=== PATIENT | male | born 1960 | race Caucasian/White ===

== ENCOUNTER 2016-10-02 14:10 | Observation (INO) | payer OTHER ==
[~2016-10-02] VITALS: Ht 170.2 cm; Wt 91.0 kg
[2016-10-02] MEDS: SODIUM CHLORIDE 0.9% FLUSH 10 ML FLUSH IV FLUSH SCH (09:00)
[2016-10-02 14:12] VITALS: BP 180/88; PULSE 91; RESP 18; TEMP 98.1; O2SAT 98
--- NOTE | 2016-10-02 14:34 | PD ---
HPI Chief Complaint: Fall Time Seen by Provider: 14:33 Travel History International Travel<30 days: No Contact w/Intl Traveler<30days: No Traveled to known affect area: No History of Present Illness HPI 56-year-old male presents to emergency Department with complaint of left-sided neck and back pain since Wednesday after stubbing his left great toe on a piece of cement and falling down approximately 3 steps. Is also complaining of left ankle pain. Denies hitting his head or loss of consciousness. Denies anticoagulants. Has been ambulatory since the fall. Denies encopresis, incontinence, saddle anesthesias. Denies paresthesias, loss of sensation, decreased range of motion, decreased strength all extremities. Denies fever, vomiting, chest pain, shortness of breath, abdominal pain. His back pain is his entire left side. Pain is aggravated with movement. Has been taking ibuprofen and Tylenol for symptom management. Symptoms are mild in severity. Has no medical complaints. No other modifying factors or associated signs and symptoms. PFSH Past Medical History Cardiovascular Problems: Yes (HTN) Allergies-Medications (Allergen,Severity, Reaction): Coded Allergies: NSAIDS (Non-Steroidal Anti-Inflamma (Verified Allergy, Severe, Rash, ) Reported Meds & Prescriptions Reported Meds & Active Scripts Active Robaxin (Methocarbamol) 500 Mg Tab 500 Mg PO QID PRN Reported Lisinopril 10 Mg Tab 10 Mg PO DAILY Review of Systems Except as stated in HPI: all other systems reviewed are Neg Physical Exam Narrative GENERAL: Well-nourished, well-developed male patient, in no acute distress; afebrile, nontoxic-appearing SKIN: Warm and dry. HEAD: Atraumatic. Normocephalic. EYES: Pupils equal and round. No scleral icterus. No injection or drainage. ENT: Mucosa pink and moist. Airway patent. NECK: Moving freely. No midline point tenderness on pronation of the cervical spine. Active rotation greater than 45 the left and right. Reproducible tenderness to the left lateral musculature of the neck. Trachea midline. CARDIOVASCULAR: Regular rate and rhythm. No murmur appreciated. RESPIRATORY: No accessory muscle use. Breath sounds clear and equal bilaterally. GASTROINTESTINAL: Abdomen soft, non-tender, nondistended. Positive bowel sounds. No hepato-splenomegaly, or palpable masses. No guarding. MUSCULOSKELETAL: Bilateral lower extremities supple and non-tense with 2+ pedal pulses and sensory intact; with full range of motion and 5/5 strength. 2 + DTRs bilaterally. Active dorsiflexion and extension of bilateral feet. Bilateral straight leg raise is negative for low back pain. Ambulatory in room with normal gait. Sitting up in bed at 90. No obvious deformities. No clubbing. No cyanosis. No edema. BACK: No midline point tenderness on palpation of the lumbar or thoracic spine. Tenderness on palpation to the musculature of the left upper to lower back. No ecchymosis, abrasions noted. No obvious deformities. NEUROLOGICAL: Awake and alert. Oriented 3. No obvious cranial nerve deficits. Motor grossly within normal limits. Normal speech. Moves all extremities. 5/5 strength to all extremities. Sensory intact. PSYCHIATRIC: Appropriate mood and affect; insight and judgment normal. Data Data Last Documented VS Orders Orders Ankle, Complete ([id number]) (10/02/16 14:34) Orphenadrine Inj (Norflex Inj) (10/02/16 14:45) Electrocardiogram (10/02/16 15:45) Basic Metabolic Panel (Bmp) (10/02/16 15:45) Ckmb (Isoenzyme) Profile (10/02/16 15:45) Complete Blood Count With Diff (10/02/16 15:45) Magnesium (Mg) (10/02/16 15:45) Prothrombin Time / Inr (Pt) (10/02/16 15:45) Act Partial Throm Time (Ptt) (10/02/16 15:45) Troponin I (10/02/16 15:45) Ecg Monitoring (10/02/16 15:45) Iv Access Insert/Monitor (10/02/16 15:45) Oximetry (10/02/16 15:45) Oxygen Administration (10/02/16 15:45) Sodium Chloride 0.9% Flush (Ns Flush) (10/02/16 15:45) Chest, Single Ap (10/02/16 15:45) Morphine Inj (Morphine Inj) (10/02/16 16:15) Ondansetron Inj (Zofran Inj) (10/02/16 16:30) CKMB (10/02/16 15:50) CKMB% (10/02/16 15:50) Spine, Cervical Compl(Mgd1hzc) (10/02/16 17:28) Spine, Thoracic-Ap/Lat/Sw(3vw) (10/02/16 17:28) Aspirin Chew (Aspirin Chew) (10/02/16 17:30) Admit Order (Ed Use Only) (10/02/16 18:55) Activity Bed Rest With Brp (10/02/16 18:55) Vital Signs (Adult) Q4H (10/02/16 18:55) Cardiac Rhythm .As Directed (10/02/16 18:55) Notify Dr: Other .PRN (10/02/16 18:55) Notify Dr. Parameters (10/02/16 18:55) Resp Oxygen Nasal Cannula (10/02/16 ) Ckmb (Isoenzyme) Profile (10/02/16 18:55) Ckmb (Isoenzyme) Profile (10/02/16 21:55) Troponin I (10/02/16 18:55) Troponin I (10/02/16 21:55) Electrocardiogram (10/02/16 18:55) Electrocardiogram (10/02/16 21:55) ^ Obtain (10/02/16 18:55) Sodium Chloride 0.9% Flush (Ns Flush) (10/02/16 19:00) Sodium Chloride 0.9% Flush (Ns Flush) (10/02/16 21:00) Marine Tower Operator / Telemetry FRANSICO.Q8H (10/02/16 18:55) CKMB (10/02/16 19:21) CKMB% (10/02/16 19:21) CKMB (10/02/16 22:30) CKMB% (10/02/16 22:30) Labs Laboratory Tests Test 10/02/16 15:50 White Blood Count 5.8 TH/MM3 Red Blood Count 4.87 MIL/MM3 Hemoglobin 15.4 GM/DL Hematocrit 45.5 % Mean Corpuscular Volume 93.5 FL Mean Corpuscular Hemoglobin 31.6 PG Mean Corpuscular Hemoglobin Concent 33.8 % Red Cell Distribution Width 13.1 % Platelet Count 236 TH/MM3 Mean Platelet Volume 9.0 FL Neutrophils (%) (Auto) 53.4 % Lymphocytes (%) (Auto) 31.7 % Monocytes (%) (Auto) 9.1 % Eosinophils (%) (Auto) 5.2 % Basophils (%) (Auto) 0.6 % Neutrophils # (Auto) 3.1 TH/MM3 Lymphocytes # (Auto) 1.8 TH/MM3 Monocytes # (Auto) 0.5 TH/MM3 Eosinophils # (Auto) 0.3 TH/MM3 Basophils # (Auto) 0.0 TH/MM3 CBC Comment DIFF FINAL Differential Comment Prothrombin Time 10.2 SEC Prothromb Time International Ratio 0.9 RATIO Activated Partial Thromboplast Time 28.2 SEC Blood Urea Nitrogen 12 MG/DL Creatinine 1.16 MG/DL Random Glucose 202 MG/DL Calcium Level 8.1 MG/DL Magnesium Level 2.3 MG/DL Sodium Level 136 MEQ/L Potassium Level 3.5 MEQ/L Chloride Level 102 MEQ/L Carbon Dioxide Level 29.3 MEQ/L Anion Gap 5 MEQ/L Estimat Glomerular Filtration Rate 65 ML/MIN Total Creatine Kinase 458 U/L Creatine Kinase MB 2.4 NG/ML Creatine Kinase MB % 0.5 % Troponin I LESS THAN 0.02 NG/ML MDM Medical Decision Making Medical Screen Exam Complete: Yes Emergency Medical Condition: Yes Medical Record Reviewed: Yes Differential Diagnosis Fall, ankle sprain, ankle fracture, back strain, neck strain, muscle strain, muscle spasm Narrative Course 56-year-old male with left ankle injury and left-sided back strain after mechanical fall on Wednesday night. 1540: Left ankle x-ray with no acute findings. Robaxin prescribed for home. 1546: I went in to discuss findings of the x-ray with the patient and he states that he had sudden onset of midsternal chest pain and shortness of breath. He says it feels like somebody sitting on his chest. His history of high blood pressure and took his lisinopril this morning. Denies cardiac history other than high blood pressure. IV started. Labs, chest x-ray, EKG ordered. Patient will be moved to a medical bed for further treatment and evaluation. 1633: Report was given to Dr. Grady. Patient will be moved to a medical bed at this time. See Dr. Grady's note for final patient disposition. Diagnosis Primary Impression: Strain of cervical portion of left trapezius muscle Additional Impressions: Back strain Left ankle injury Scripts Methocarbamol (Robaxin) 500 Mg Tab 500 MG PO QID Y for MUSCLE SPASM, #30 TAB 0 Refills Prov: Cecile Mejia 10/02/16 Cecile Mejia Oct 02, 2016 14:33
[2016-10-02] MEDS ORDERED: LISI10TA3 PO (14:44)
[2016-10-02] MEDS ORDERED: ORPHENADRINE INJ 60 MG/2 ML AMP IM ONE (14:45)
[2016-10-02] MEDS ORDERED: ROBA500T PO (14:46)
--- NOTE | 2016-10-02 15:17 | RADRPT ---
EXAM DATE/TIME: 10/02/2016 15:07 [facility] COMPARISON: No previous studies available for comparison. INDICATIONS : Left ankle pain post fall. No prior history. MEDICAL HISTORY : None. SURGICAL HISTORY : None. ENCOUNTER: Initial ACUITY: 2 days PAIN SCORE: 5/10 LOCATION: Left ankle FINDINGS: Three view exam was performed of the left ankle. The bony structures are in normal alignment. No ev idence of fracture, dislocation, or soft tissue swelling. The ankle mortise is intact. No radiopaqu e foreign bodies are seen. Bony mineralization is normal. CONCLUSION: Negative trauma study. Pritesh Skinner MD on October 02, 2016 at 15:15 Board Certified Radiologist. This report was verified electronically.
[2016-10-02] MEDS ORDERED: SODIUM CHLORIDE 0.9% FLUSH 10 ML FLUSH IVF PRN (15:45)
[2016-10-02] MEDS ORDERED: MORPHINE SULFATE 4 MG/ML INJ IV PUSH ONE (16:15)
[2016-10-02 16:23] LABS: AUTOMATED NEUTROPHIL # 3.1 TH/MM3 (1.8-7.7); BASOPHIL % 0.6 % (0.0-2.0); EOSINOPHIL # 0.3 TH/MM3 (0-0.4); EOSINOPHIL % 5.2 % (0.0-4.0); HEMATOCRIT 45.5 % (39.0-51.0); HEMO FLAGS DIFF FINAL; LYMPH % 31.7 % (9.0-44.0); LYMPHOCYTE # 1.8 TH/MM3 (1.0-4.8); MEAN CELL VOLUME 93.5 FL (80.0-100.0); MEAN CORPUSCULAR HEMOGLOBIN 31.6 PG (27.0-34.0); MEAN CORPUSCULAR HGB CONC 33.8 % (32.0-36.0); MONO % 9.1 % (0.0-8.0); NEUT % 53.4 % (16.0-70.0); PLATELET COUNT 236 TH/MM3 (150-450); RED BLOOD COUNT 4.87 MIL/MM3 (4.50-5.90); RED CELL DISTRIBUTION WIDTH 13.1 % (11.6-17.2); WHITE BLOOD COUNT 5.8 TH/MM3 (4.0-11.0)
[2016-10-02 16:30] LABS: APTT (PATIENT) 28.2 SEC (24.3-30.1); INTERNATIONAL NORMALIZED RATIO 0.9 RATIO; PROTHROMBIN TIME - PATIENT 10.2 SEC (9.8-11.6)
[2016-10-02] MEDS ORDERED: ONDANSETRON HCL 4 MG/2 ML VIAL IV PUSH ONE (16:30)
[2016-10-02 16:40] VITALS: BP 150/87; PULSE 84; RESP 16; RESP 17; TEMP 97.8; O2SAT 97
[2016-10-02 16:40] LABS: ANION GAP 5 MEQ/L (5-15); BICARBONATE 29.3 MEQ/L (21.0-32.0); BLOOD UREA NITROGEN 12 MG/DL (7-18); CHLORIDE 102 MEQ/L (98-107); GLOMERULAR FILTRATION RATE 65 ML/MIN (>89); MAGNESIUM 2.3 MG/DL (1.5-2.5); POTASSIUM 3.5 MEQ/L (3.5-5.1); SODIUM (NA) 136 MEQ/L (136-145)
[2016-10-02 16:44] LABS: CREATINE KINASE 458 U/L (39-308)
[2016-10-02 16:57] LABS: CKMB 2.4 NG/ML (0.5-3.6)
--- NOTE | 2016-10-02 17:14 | RADRPT ---
EXAM DATE/TIME: 10/02/2016 16:53 [facility] COMPARISON: ANKLE LEFT COMPLETE ([id number]), October 02, 2016, 15:07. INDICATIONS : Chest pain, back pain. Patient reports no hx. MEDICAL HISTORY : None. SURGICAL HISTORY : None. ENCOUNTER: Initial ACUITY: 1 day PAIN SCORE: 8/10 LOCATION: Bilateral chest FINDINGS: A single view of the chest demonstrates the lungs to be symmetrically aerated without evidence of mas s, infiltrate or effusion. The cardiomediastinal contours are unremarkable. Osseous structures are intact. CONCLUSION: 1. No acute cardiopulmonary findings. Francesco Camejo MD on October 02, 2016 at 17:12 Board Certified Radiologist. This report was verified electronically.
[2016-10-02 17:16] VITALS: BP 138/85; PULSE 87; RESP 16; TEMP 97.8; O2SAT 97
[2016-10-02] MEDS ORDERED: ASPIRIN 81 MG CHEW TAB PO ONE (17:30)
--- NOTE | 2016-10-02 17:37 | PD ---
Physical Exam Narrative Patient was seen in fast track after a fall down stairs 2 days ago. Patient then started complaining of left-sided chest heaviness that began while in the emergency room and was transferred to a medical bed. Chest pain evaluation was initiated by previous provider. Patient has been taking ibuprofen for pain after his fall with minimal to no relief. States NSAIDs make him itch. Patient reports associated shortness of breath when the chest pain started today. Patient reports has improved some since being in the ER. States pain radiates to his left shoulder. Denies anything making it worse. Patient has a history of cardiac disease. GENERAL: Well-developed, overly nourished, in no acute distress, and non-ill appearing. SKIN: Focused skin assessment warm and dry. HEAD: Atraumatic. Normocephalic. EYES: Pupils equal and round. EOMI. No scleral icterus. No injection or drainage. ENT: No nasal bleeding or discharge. Mucous membranes pink and moist. NECK: Trachea midline. No JVD. Supple. No nuclear rigidity. No crepitus or tenderness over midline cervical spine. CARDIOVASCULAR: Regular rate and rhythm. No murmur appreciated. RESPIRATORY: No accessory muscle use. No respiratory distress. Clear to auscultation. Breath sounds equal bilaterally. MUSCULOSKELETAL: No obvious deformities. No clubbing. No cyanosis. No edema. Full range of motion. No tenderness or crepitus over midline of the spinal column. Patient reports that his palpation over left trapezius muscle. NEUROLOGICAL: Awake and alert. No obvious cranial nerve deficits. Motor grossly within normal limits. Normal speech. PSYCHIATRIC: Appropriate mood and affect; insight and judgment normal. Data Data Last Documented VS Vital Signs Date Time Temp Pulse Resp B/P Pulse Ox O2 Delivery O2 Flow Rate FiO2 10/02/16 17:16 97.8 87 16 138/85 97 Room Air Orders Ankle, Complete ([id number]) (10/02/16 14:34) Orphenadrine Inj (Norflex Inj) (10/02/16 14:45) Electrocardiogram (10/02/16 15:45) Basic Metabolic Panel (Bmp) (10/02/16 15:45) Ckmb (Isoenzyme) Profile (10/02/16 15:45) Complete Blood Count With Diff (10/02/16 15:45) Magnesium (Mg) (10/02/16 15:45) Prothrombin Time / Inr (Pt) (10/02/16 15:45) Act Partial Throm Time (Ptt) (10/02/16 15:45) Troponin I (10/02/16 15:45) Ecg Monitoring (10/02/16 15:45) Iv Access Insert/Monitor (10/02/16 15:45) Oximetry (10/02/16 15:45) Oxygen Administration (10/02/16 15:45) Sodium Chloride 0.9% Flush (Ns Flush) (10/02/16 15:45) Chest, Single Ap (10/02/16 15:45) Morphine Inj (Morphine Inj) (10/02/16 16:15) Ondansetron Inj (Zofran Inj) (10/02/16 16:30) CKMB (10/02/16 15:50) CKMB% (10/02/16 15:50) Spine, Cervical Compl(Kya3cls) (10/02/16 17:28) Spine, Thoracic-Ap/Lat/Sw(3vw) (10/02/16 17:28) Aspirin Chew (Aspirin Chew) (10/02/16 17:30) Admit Order (Ed Use Only) (10/02/16 18:55) Activity Bed Rest With Brp (10/02/16 18:55) Vital Signs (Adult) Q4H (10/02/16 18:55) Cardiac Rhythm .As Directed (10/02/16 18:55) Notify Dr: Other .PRN (10/02/16 18:55) Notify Parameters (10/02/16 18:55) Resp Oxygen Nasal Cannula (10/02/16 ) Ckmb (Isoenzyme) Profile (10/02/16 18:55) Ckmb (Isoenzyme) Profile (10/02/16 21:55) Troponin I (10/02/16 18:55) Troponin I (10/02/16 21:55) Electrocardiogram (10/02/16 18:55) Electrocardiogram (10/02/16 21:55) ^ Obtain (10/02/16 18:55) Sodium Chloride 0.9% Flush (Ns Flush) (10/02/16 19:00) Sodium Chloride 0.9% Flush (Ns Flush) (10/02/16 21:00) Individualized Education Plan Aide / Telemetry FRANSICO.Q8H (10/02/16 18:55) Labs Laboratory Tests Test 10/02/16 15:50 White Blood Count 5.8 TH/MM3 Red Blood Count 4.87 MIL/MM3 Hemoglobin 15.4 GM/DL Hematocrit 45.5 % Mean Corpuscular Volume 93.5 FL Mean Corpuscular Hemoglobin 31.6 PG Mean Corpuscular Hemoglobin 33.8 % Concent Red Cell Distribution Width 13.1 % Platelet Count 236 TH/MM3 Mean Platelet Volume 9.0 FL Neutrophils (%) (Auto) 53.4 % Lymphocytes (%) (Auto) 31.7 % Monocytes (%) (Auto) 9.1 % Eosinophils (%) (Auto) 5.2 % Basophils (%) (Auto) 0.6 % Neutrophils # (Auto) 3.1 TH/MM3 Lymphocytes # (Auto) 1.8 TH/MM3 Monocytes # (Auto) 0.5 TH/MM3 Eosinophils # (Auto) 0.3 TH/MM3 Basophils # (Auto) 0.0 TH/MM3 CBC Comment DIFF FINAL Differential Comment Prothrombin Time 10.2 SEC Prothromb Time International 0.9 RATIO Ratio Activated Partial 28.2 SEC Thromboplast Time Sodium Level 136 MEQ/L Potassium Level 3.5 MEQ/L Chloride Level 102 MEQ/L Carbon Dioxide Level 29.3 MEQ/L Anion Gap 5 MEQ/L Blood Urea Nitrogen 12 MG/DL Creatinine 1.16 MG/DL Estimat Glomerular Filtration 65 ML/MIN Rate Random Glucose 202 MG/DL Calcium Level 8.1 MG/DL Magnesium Level 2.3 MG/DL Total Creatine Kinase 458 U/L Creatine Kinase MB 2.4 NG/ML Creatine Kinase MB % 0.5 % Troponin I LESS THAN 0.02 NG/ML [facility] Supervised Visit with [facility]: No Interpretation(s) Thoracic spine x-ray read by the radiologist shows: Intact thoracic spine. Service by x-ray read by the radiologist shows: Degenerative changes as above. No fracture or subluxation of the cervical spine. Narrative Course Discussed all findings and plan care of patient is agreeable for chest pain center admission however his family is at bedside with concern regarding patient 's neck and back pain is requests additional studies including possible CT and/ or MRI. We'll obtain x-rays and if no significant findings will then admit to the chest pain center further evaluation of his chest pain. Patient is agreeable to this. Patient and family was informed x-rays were showing no acute findings, if patient's neck and back pain persists could be further evaluated on an outpatient basis. Patient and family both verbalized understanding of this. Patient was given a dose of aspirin secondary to chest pain. X-rays were obtained and reviewed read by the radiologist. Discussed all findings with patient and family. All questions were answered. Patient still agreeable for admission of the chest pain center. Discussed all findings and plan of care with Dr. Rodriguez who is in agreement with plan of care and disposition. Diagnosis Primary Impression: Chest pain Qualified Code: R07.9 - Chest pain, unspecified type Additional Impressions: Strain of cervical portion of left trapezius muscle Left ankle injury Qualified Code: S99.912A - Injury of left ankle, initial encounter Back strain Qualified Code: S39.012A - Back strain, initial encounter Admitting Information Admitting Physician Requests: Observation Additional Instruction: Tylenol or ibuprofen as directed and as needed for pain Robaxin as prescribed and as needed for muscle spasms Heating pad and/or ice to affected area to reduce pain Avoid aggravating activities; increase activity as tolerated Follow-up with primary care provider Return to emergency department immediately with worsening of symptoms Scripts Methocarbamol (Robaxin)500 Mg [id number] Mg PO QID PRN (MUSCLE SPASM) #30 TAB Ref 0 Prov:Cecile Mejia 10/02/16 Disposition: LEFT WITHOUT BEING SEEN Richar Gtz Oct 02, 2016 17:37
--- NOTE | 2016-10-02 18:43 | RADRPT ---
EXAM DATE/TIME: 10/02/2016 18:13 [facility] COMPARISON: No previous studies available for comparison. INDICATIONS : Pain post fall MEDICAL HISTORY : None. SURGICAL HISTORY : None. ENCOUNTER: Initial ACUITY: 2 days PAIN SCORE: 7/10 LOCATION: Neck. FINDINGS: No fracture or subluxation of the cervical spine. Vertebral bodies have normal height. 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 Right-sided foraminal stenosis seen at each of these levels. There is mild disc spa ce narrowing at C5/C6 and moderate disc space narrowing at C6/C7. No prevertebral soft tissue swelling seen. CONCLUSION: Degenerative changes as above. No fracture or subluxation of the cervical spine. Renan Elder MD on October 02, 2016 at 18:40 Board Certified Radiologist. This report was verified electronically.
--- NOTE | 2016-10-02 18:50 | RADRPT ---
EXAM DATE/TIME: 10/02/2016 18:23 [facility] COMPARISON: No previous studies available for comparison. INDICATIONS : Pain post fall. MEDICAL HISTORY : None. SURGICAL HISTORY : None. ENCOUNTER: Initial ACUITY: 2 days PAIN SCORE: 7/10 LOCATION: Upper back. FINDINGS: No fracture or subluxation seen of the thoracic spine. Vertebral bodies have normal height. Mild disc space narrowing with anterior and lateral osseous ridging seen at essentially all levels. T here is also mild bilateral facet osteoarthritis throughout. CONCLUSION: Intact thoracic spine. Renan Elder MD on October 02, 2016 at 18:47 Board Certified Radiologist. This report was verified electronically.
[2016-10-02] MEDS ORDERED: SODIUM CHLORIDE 0.9% FLUSH 10 ML FLUSH IV FLUSH PRN (19:00)
[2016-10-02 19:25] VITALS: BP 142/78; PULSE 85; RESP 16; O2SAT 98
[2016-10-02 20:25] LABS: CREATINE KINASE 634 U/L (39-308)
[2016-10-02 20:37] LABS: CKMB 2.8 NG/ML (0.5-3.6)
[2016-10-02 20:53] VITALS: BP 140/87; PULSE 81; RESP 19; TEMP 97.8; O2SAT 96
[2016-10-02] MEDS: ACETAMINOPHEN/HYDROcodone 325 MG/5 MG TAB PO PRN (22:29)
[2016-10-02 23:10] LABS: CREATINE KINASE 648 U/L (39-308)
[2016-10-02 23:22] LABS: CKMB 2.5 NG/ML (0.5-3.6)
[2016-10-03 00:37] VITALS: BP 133/77; PULSE 82; RESP 16; TEMP 98; O2SAT 95
[2016-10-03] MEDS: ACETAMINOPHEN/HYDROcodone 325 MG/5 MG TAB PO PRN ×2 (03:08→16:09)
[2016-10-03 05:20] VITALS: BP 129/78; PULSE 65; RESP 18; TEMP 98.1; O2SAT 97
[2016-10-03 07:42] VITALS: PULSE 73
[2016-10-03 08:10] VITALS: BP 118/82; PULSE 75; RESP 18; TEMP 98; O2SAT 96
[2016-10-03] MEDS: SODIUM CHLORIDE 0.9% FLUSH 10 ML FLUSH IV FLUSH SCH (09:00)
[2016-10-03] MEDS ORDERED: LISINOPRIL 10 MG TAB PO SCH (10:00)
--- NOTE | 2016-10-03 10:03 | HHI.HP ---
HPI Primary Care Physician Unknown Chief Complaint Chest pain and fall History of Present Illness This is a 56-year-old male that presents to ED via private vehicle with his initially with a complaint of neck, back pain after falling. He states he stubbed his toe and tripped and fell down 3 steps. He states the whole left side of his body hurts but mainly his neck is hurting and his left shoulder. Denies headache. Denies loss of consciousness. Denies weakness in extremities. Denies fecal or urinary incontinence. He had x-rays obtained in the ED and while the results are being explained to him he informed the medical team that he was having a heaviness in his chest. He states that that lasted 2 hours and was short of breath. He was upset limited to the chest pain center to further evaluate his chest discomfort. X-rays of his T-spine, C-spine, left ankle, and chest x-ray revealed nothing acute. Cannot recall ever having a stress test. Review of Systems General: Patient denies fevers, chills recent, and recent travel HEENT: Patient denies headache, sore throat, difficulty swallowing. Cardiovascular: Has the chest discomfort as mentioned above. Denies sensation of heart beating rapidly or irregularly. No syncope. Denies diaphoresis. Respiratory: He was short of breath. Denies inspirational chest discomfort. Denies coughing wheezing or hemoptysis. GI: Patient denies nausea, vomiting, diarrhea, abdominal pain, bloody stools. Musculoskeletal: Complains of neck pain, left shoulder pain. Essentially complains of entire left body pain. Neurovascular: Patient denies numbness, tingling, weakness in extremities. Denies headache. Endocrine: Denies polyuria and polydipsia. Hematologic: Denies easy bruising. Skin: Complains of a scratch on his left great toe. Denies rash or itching. Past Family Social History Allergies: Coded Allergies: NSAIDS (Non-Steroidal Anti-Inflamma (Verified Allergy, Severe, Rash, ) Past Medical History Hypertension, hyperlipidemia, tobacco abuse. Denies diabetes and known CAD. Past Surgical History Noncontributory. Reported Medications Reported Meds & Active Scripts Active Robaxin (Methocarbamol) 500 Mg Tab 500 Mg PO QID PRN Reported Lisinopril 10 Mg Tab 10 Mg PO DAILY Active Ordered Medications Current Medications Medications (Trade) Dose Ordered Sig/Bao Route Start Time Stop Time Status Last Admin (NS Flush) 2 ml UNSCH PRN IV FLUSH 10/02/16 19:00 (NS Flush) 2 ml BID IV FLUSH 10/02/16 21:00 10/03/16 09:00 ([place] 5-325 Mg) 1 tab Q4H PRN PO 10/02/16 22:15 10/03/16 03:08 (Prinivil) 10 mg DAILY PO 10/03/16 10:00 UNV Family History States that his mother at 65 of myocardial infarction. Social History Patient smokes proximal 1 pack of cigarettes daily for almost 40 years. He drinks on average one 12 ounce beer a week and a couple ounces of liquor per week. Denies illicit drugs. He is . Physical Exam Vital Signs Vital Signs Date Time Temp Pulse Resp B/P Pulse Ox O2 Delivery O2 Flow Rate FiO2 10/03/16 08:10 98.0 75 18 118/82 96 10/03/16 07:42 73 10/03/16 06:15 21 10/03/16 05:20 98.1 65 18 129/78 97 10/03/16 00:37 98.0 82 16 133/77 95 10/02/16 20:53 97.8 81 19 140/87 96 10/02/16 19:25 85 16 142/78 98 Room Air 10/02/16 17:16 97.8 87 16 138/85 97 Room Air 10/02/16 16:40 97 Room Air 10/02/16 16:40 16 97 Room Air 10/02/16 16:40 97.8 84 17 150/87 97 Room Air 10/02/16 16:40 16 10/02/16 14:12 98.1 91 18 180/88 98 Physical Exam GENERAL: This is a well-nourished, well-developed patient, in no apparent distress. Patient speaks in clear complete sentences. Patient is pleasant. HEENT: Head is atraumatic and normocephalic. Neck is supple without lymphadenopathy and trachea is midline. No JVD or carotid bruits. CARDIOVASCULAR: Regular rate and rhythm without murmurs, gallops, or rubs. RESPIRATORY: Clear to auscultation. Breath sounds equal bilaterally. No wheezes , rales, or rhonchi. Chest wall is tender. No use of accessory muscles. GASTROINTESTINAL: Abdomen is nontender, nondistended. Abdomen soft. No obvious pulsatile mass or bruit. No CVA tenderness. Strong femoral pulses bilaterally. Normal bowel sounds in all quadrants. MUSCULOSKELETAL: Patient is moving upper and lower extremities freely however there is discomfort with movement of his left shoulder. Also discomfort with movement of his neck. No spinous process point tenderness in palpating cervical , thoracic, or lumbar spine. There is a superficial laceration on the tuft of the left great toe. No active bleeding or erythema. There is no ecchymosis or edema of the toe.. No calf tenderness or edema, no Homans sign. Strong pulses in upper and lower extremities. NEUROLOGICAL: Patient is alert and oriented. Cranial nerves 2-12 are grossly intact. No focal deficits and speech is clear. SKIN: No rash and turgor is normal. Laboratory Laboratory Tests Test 10/02/16 10/02/16 10/02/16 15:50 19:21 22:30 White Blood Count 5.8 Red Blood Count 4.87 Hemoglobin 15.4 Hematocrit 45.5 Mean Corpuscular Volume 93.5 Mean Corpuscular Hemoglobin 31.6 Mean Corpuscular Hemoglobin 33.8 Concent Red Cell Distribution Width 13.1 Platelet Count 236 Mean Platelet Volume 9.0 Neutrophils (%) (Auto) 53.4 Lymphocytes (%) (Auto) 31.7 Monocytes (%) (Auto) 9.1 Eosinophils (%) (Auto) 5.2 Basophils (%) (Auto) 0.6 Neutrophils # (Auto) 3.1 Lymphocytes # (Auto) 1.8 Monocytes # (Auto) 0.5 Eosinophils # (Auto) 0.3 Basophils # (Auto) 0.0 CBC Comment DIFF FINAL Differential Comment Prothrombin Time 10.2 Prothromb Time International 0.9 Ratio Activated Partial 28.2 Thromboplast Time Sodium Level 136 Potassium Level 3.5 Chloride Level 102 Carbon Dioxide Level 29.3 Anion Gap 5 Blood Urea Nitrogen 12 Creatinine 1.16 Estimat Glomerular Filtration 65 Rate Random Glucose 202 Calcium Level 8.1 Magnesium Level 2.3 Total Creatine Kinase 458 634 648 Creatine Kinase MB 2.4 2.8 2.5 Creatine Kinase MB % 0.5 0.4 0.4 Troponin I LESS THAN 0.02 LESS THAN 0.02 LESS THAN 0.02 Result Diagram: 10/02/16 1550 10/02/16 1550 Assessment and Plan Assessment and Plan * Chest pain: Patient has had serial cardiac enzymes and EKGs for ruling out purposes. He will be seen by Dr. Romero of cardiology in the chest pain center and will have a stress test. He would not be all gone a treadmill at this time with his discomforts from his fall and subsequently a Lexiscan has been ordered. He'll be discharged home if the stress test was nonischemic. * Neck pain: X-rays show degenerative changes. Nothing acute. He needs to follow-up with PCP. * Contusions: Patient to use ice and Tylenol. States he is allergic to NSAIDs however he took ibuprofen. States usually it causes rash and itching but this did not occur last night. * Hypertension: Continue current medication. * Hyperlipidemia: Continue current medication. * Tobacco abuse: Patient has been counseled on importance of smoking cessation. Patient is stable at this time. He is agreeable to this plan. Corey Saez Oct 03, 2016 10:03
[2016-10-03 12:00] VITALS: BP 119/60; PULSE 78; RESP 18; TEMP 97.8; O2SAT 91
[2016-10-03] MEDS ORDERED: REGADENOSON INJ 0.4 MG/5 ML SYR ONE (14:17)
--- NOTE | 2016-10-03 14:59 | EKG ---
Date Performed: 10/02/2016 Time Performed: 19:15:59 PTAGE: 56 years EKG: Sinus rhythm WITH OCCASIONAL SUPRAVENTRICULAR PREMATURE COMPLEXES NONSPECIFIC T-WAVE ABNORMALITY BORDERLINE ECG PREVIOUS TRACING : 10/02/2016 15.58 Since previous tracing, no significant change noted DOCTOR: Dennis Romero Interpretating Date/Time 10/03/2016 14:58:40
--- NOTE | 2016-10-03 15:01 | EKG ---
Date Performed: 10/02/2016 Time Performed: 15:58:03 PTAGE: 56 years EKG: Sinus rhythm WITH MARKED SINUS ARRHYTHMIA NONSPECIFIC T-WAVE ABNORMALITY BORDERLINE ECG NO PREVIOUS TRACING DOCTOR: Dennis Romero Interpretating Date/Time 10/03/2016 15:00:50
--- NOTE | 2016-10-03 15:02 | EKG ---
Date Performed: 10/02/2016 Time Performed: 22:25:47 PTAGE: 56 years EKG: Sinus rhythm WITH OCCASIONAL SUPRAVENTRICULAR PREMATURE COMPLEXES NONSPECIFIC T-WAVE ABNORMALITY BORDERLINE ECG PREVIOUS TRACING : 10/02/2016 19.15 Since previous tracing, no significant change noted DOCTOR: Dennis Romero Interpretating Date/Time 10/05/2016 07:55:34
--- NOTE | 2016-10-03 15:33 | RADRPT ---
EXAM DATE/TIME: 10/03/2016 13:39 [facility] COMPARISON: No previous studies available for comparison. INDICATIONS : Left sided chest pain radiating to the back and shoulder. Patient fall. Angina. DOSE: 26.2 mCi Tc99m Myoview at stress. 8.6 mCi Tc99m Myoview at rest. 0.4 mg Lexiscan STRESS SYMPTOMS: Flush. EJECTION FRACTION: 62% MEDICAL HISTORY : Hypertension. SURGICAL HISTORY : None. ENCOUNTER: Initial ACUITY: 1 day PAIN SCALE: 8/10 LOCATION: Left chest TECHNIQUE: The patient underwent pharmacologic stress with infusion of prescribed dose. Continuous ECG tracing was monitored during stress. Gated SPECT imaging was performed after stress and conventional SPECT i maging was performed at rest. The examination was performed on a SPECT/CT scanner, both attenuation and non-corrected datasets were reviewed. FINDINGS: DISTRIBUTION: The maximum perfused segment at stress is in the anterolateral wall. PERFUSION STUDY: The pattern of perfusion at stress is within normal limits. GATED STUDY: There is intact wall motion and thickening without hypokinetic or dyskinetic segments. CONCLUSION: No appreciable ischemia. RISK CATEGORY: Low (<1% Annual Mortality Rate) Suzan Flor MD on October 03, 2016 at 15:30 Board Certified Radiologist. This report was verified electronically.
--- NOTE | 2016-10-03 15:44 | HHI.DCPOC ---
Discharge Care Plan Diagnosis: (1) Chest pain (2) Multiple contusions (3) Neck pain (4) Back pain (5) Hypertension (6) Hyperlipidemia (7) Tobacco abuse Goals to Promote Your Health * To prevent worsening of your condition and complications * To maintain your health at the optimal level Directions to Meet Your Goals Take your medications as prescribed Follow your dietary instruction Follow activity as directed Keep your appointments as scheduled Take your immunizations and boosters as scheduled If your symptoms worsen call your PCP, if no PCP go to Urgent Care Center or Emergency Room Smoking is Dangerous to Your Health. Avoid second hand smoke Call the 24-hour hour crisis hotline for domestic abuse at Corey Saez Oct 03, 2016 15:44
--- NOTE | 2016-10-04 16:26 | TR ---
Date Performed: 10/03/2016 Time Performed: 14:21:40 DOCTOR: Dennis Romero DRUG LIST: CLINICAL HISTORY: ANGINA REASON FOR TEST: Angina REASON FOR ENDING: OBSERVATION: CONCLUSION: COMMENTS:
== END 2016-10-03 16:24 | disposition home or self-care (01) ==
LOC: NEPC 14:10 → NEDA 18:57 → NEPFCDU 20:51
PROVIDERS: ADMIT Internal Medicine Cardiovascular Disease; ATTEND Internal Medicine Cardiovascular Disease
DX: R07.89 Other chest pain (principal); S99.912A Unspecified injury of left ankle, initial encounter; S39.012A Strain of muscle, fascia and tendon of lower back, initial encounter; S29.012A Strain of muscle and tendon of back wall of thorax, initial encounter; S16.1XXA Strain of muscle, fascia and tendon at neck level, initial encounter; R06.02 Shortness of breath; I10 Essential (primary) hypertension; E78.5 Hyperlipidemia, unspecified; F17.210 Nicotine dependence, cigarettes, uncomplicated; W10.9XXA Fall (on) (from) unspecified stairs and steps, initial encounter; Z71.6 Tobacco abuse counseling; Z79.899 Other long term (current) drug therapy
CPT/HCPCS: 71010; 72050; 72072; 73610; 78452; 80048; 82550; 82552; 83735; 84484; 85025; 85610; 85730; 93005; 93017; 96372; 96374; 96375; 99285; A9502; G0378; J2270; J2360; J2405; J2785